=== PATIENT | male | born 1995 | race Two or more races ===

== ENCOUNTER 2016-12-14 19:57 | Emergency (ER) | payer OTHER ==
[~2016-12-14] VITALS: Ht 190.5 cm; Wt 66.5 kg
[2016-12-14 20:08] VITALS: BP 129/65
== END 2016-12-14 22:25 | disposition home or self-care (01) ==
LOC: ED 21:02
DX: S80.02XA Contusion of left knee, initial encounter (principal); V89.2XXA Person injured in unspecified motor-vehicle accident, traffic, initial encounter; Y93.89 Activity, other specified; Y92.488 Other paved roadways as the place of occurrence of the external cause; Y99.8 Other external cause status
CPT/HCPCS: 99284

== ENCOUNTER 2017-04-25 12:42 | Emergency (ER) | payer OTHER ==
[~2017-04-25] VITALS: Ht 190.5 cm; Wt 81.0 kg
[2017-04-25 12:58] VITALS: BP 100/66
== END 2017-04-25 15:06 | disposition home or self-care (01) ==
LOC: ED 15:00
DX: S83.411A Sprain of medial collateral ligament of right knee, initial encounter (principal); V89.2XXA Person injured in unspecified motor-vehicle accident, traffic, initial encounter; Y93.89 Activity, other specified; Y92.481 Parking lot as the place of occurrence of the external cause; Y99.8 Other external cause status
CPT/HCPCS: 99284

== ENCOUNTER 2018-05-29 19:50 | Emergency (ER) | payer SELFPAY ==
[~2018-05-29] VITALS: Ht 190.5 cm; Wt 68.5 kg
[2018-05-29 19:57] VITALS: BP 111/69
[2018-05-29 20:56] LABS: RAPID INFLUENZA A Negative (Negative); RAPID INFLUENZA B Negative (Negative)
[2018-05-29] MEDS ORDERED: DEXAMETHASONE 4 MG TABLET ONE (21:15)
[2018-05-29] MEDS ORDERED: DEXAMETHASONE 4 MG TABLET PO ONE (21:30)
== END 2018-05-29 21:25 | disposition home or self-care (01) ==
LOC: ED 21:00
DX: J02.8 Acute pharyngitis due to other specified organisms (principal); B97.89 Other viral agents as the cause of diseases classified elsewhere
CPT/HCPCS: 87081; 87400; 87880; 99283

== ENCOUNTER 2019-01-27 18:31 | Emergency (ER) | payer SELFPAY ==
[~2019-01-27] VITALS: Ht 190.5 cm; Wt 65.0 kg
[2019-01-27] MEDS ORDERED: KETOROLAC 30 MG/1 ML ONE (19:05)
[2019-01-27] MEDS ORDERED: KETOROLAC 30 MG/1 ML IM ONE (19:30)
[2019-01-27 19:54] VITALS: BP 131/74
== END 2019-01-27 19:56 | disposition home or self-care (01) ==
LOC: ED 19:50
DX: S33.5XXA Sprain of ligaments of lumbar spine, initial encounter (principal); G89.11 Acute pain due to trauma; F17.200 Nicotine dependence, unspecified, uncomplicated; W22.8XXA Striking against or struck by other objects, initial encounter; Y93.89 Activity, other specified; Y92.89 Other specified places as the place of occurrence of the external cause; Y99.8 Other external cause status
CPT/HCPCS: 72110; 96372; 99283; J1885

== ENCOUNTER 2019-02-05 21:01 | Emergency (ER) | payer SELFPAY ==
[~2019-02-05] VITALS: Ht 190.5 cm; Wt 63.9 kg
[2019-02-05 21:11] VITALS: BP 102/62
== END 2019-02-05 22:32 | disposition home or self-care (01) ==
LOC: ED 22:15
DX: B34.9 Viral infection, unspecified (principal); J00 Acute nasopharyngitis [common cold]
CPT/HCPCS: 71045; 87081; 87880; 99284

== ENCOUNTER 2020-09-14 23:53 | Observation (INO) | payer SELFPAY ==
[~2020-09-14] VITALS: Ht 190.5 cm; Wt 66.8 kg
[2020-09-15 00:36] LABS: ANION GAP 7 mmol/L (5-15); BASOPHILS % (AUTO) 0 % (0-1); CALCIUM 9.2 mg/dL (8.5-10.1); CHLORIDE 101 mmol/L (98-107); EOSINOPHILS % (AUTO) 0 % (1-7); LYMPHOCYTES % (AUTO) 15 % (22-44); MEAN CORPUSCULAR HEMOGLOBIN 29.8 pg (27.5-34.5); MEAN CORPUSCULAR HGB CONC 33.6 g/dL (33.2-36.2); MEAN PLATELET VOLUME 7.5 fL (7.4-10.4); MONOCYTES % (AUTO) 12 % (2-9); NEUTROPHILS % (AUTO) 72 % (42-75); PLATELET COUNT 260 x10^3/uL (130-400); RED BLOOD COUNT 5.33 x10^6/uL (4.38-5.82); RED CELL DISTRIBUTION WIDTH 13.5 % (9.4-14.8)
--- NOTE | 2020-09-15 00:43 | NUR ---
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
--- NOTE | 2020-09-15 00:52 | NUR ---
PT C/O OF LOWER ABDOMINAL PAIN SINCE MONDAY MORNING. REPORTS FEELING NAUSCIOUS AND WAS VOMITTING PARTIALLY DIGESTED FOOD AND STOMACH ACID THIS MORNING. PT AMBULATED TO ROOM WITH STEADY GAIT. CURRENTLY IN BATHROOM ATTAEMPTING TO PROVIDE A UA. SEGUN
[2020-09-15 01:12] LABS: MICROSCOPIC AUTO
--- NOTE | 2020-09-15 02:06 | NUR ---
PT OFF UNIT IN IMAGING.
[2020-09-15] MEDS ORDERED: OMNIPAQUE 350 MG/ML, 100ML BOTTLE ONE (02:19)
--- NOTE | 2020-09-15 02:37 | NUR ---
Patient is resting comfortably in bed. Bed in lowest, rails engaged, call light on lap. Vital Signs within normal limits. WCTM. nadn
--- NOTE | 2020-09-15 03:55 | NUR ---
Patient is sleeping comfortably in bed. Eyes closed. Bed in lowest, rails engaged, call light on lap. Vital Signs within normal limits. WCTM. nadn
[2020-09-15] MEDS ORDERED: SODIUM CHLORIDE 0.9% 1,000 ML IV ONE (05:00)
[2020-09-15] MEDS ORDERED: ONDANSETRON 2MG/ML, 2ML IVPush PRN ×3 (05:00→08:30)
[2020-09-15] MEDS ORDERED: MORPHINE SULFATE 4 MG/ML, 1ML IVPush PRN (05:00)
[2020-09-15] MEDS ORDERED: SODIUM CHLORIDE FLUSH 10ML SYR IVF PRN (05:00)
[2020-09-15] MEDS ORDERED: SODIUM CHLORIDE 0.9% 1,000ML IVBOLUS ONE (05:30)
--- NOTE | 2020-09-15 06:18 | NUR ---
PT READY FOR TRANSFER TO FLOOR. PT CONDITION UNCHANGED. NADN.
[2020-09-15] MEDS ORDERED: CHLORHEXIDINE 15 ML UDC ONE (06:47)
[2020-09-15] MEDS ORDERED: BUPIVACAINE/PF 0.5% ONE (07:12)
[2020-09-15] MEDS ORDERED: EPINEPHRINE 1 MG/ML, 1ML ONE (07:13)
[2020-09-15] MEDS ORDERED: FENTANYL PF 250 MCG/5ML ONE (07:15)
[2020-09-15] MEDS ORDERED: MIDAZOLAM 1 MG/ML, 2ML ONE (07:15)
[2020-09-15] MEDS ORDERED: PROPOFOL 10 MG/ML, 20ML ONE ×3 (07:16)
[2020-09-15] MEDS ORDERED: SUCCINYLCHOLINE 20 MG/ML, 10ML ONE (07:18)
[2020-09-15] MEDS ORDERED: DEXAMETHASONE 4 MG/ML, 5ML ONE (07:18)
[2020-09-15] MEDS ORDERED: ONDANSETRON 2MG/ML, 2ML ONE ×2 (07:58)
[2020-09-15] MEDS ORDERED: ROCURONIUM 10MG/ML,5ML ONE (07:58)
[2020-09-15] MEDS ORDERED: SUGAMMADEX 200 MG/2 ML IVPush ONE (07:58)
[2020-09-15] MEDS ORDERED: ACETAMINOPHEN 650 MG/20.3 ML UDC PO PRN (08:30)
[2020-09-15] MEDS ORDERED: LABETALOL 5MG/ML, 20ML IV PRN (08:30)
[2020-09-15] MEDS ORDERED: FENTANYL PF 100 MCG/2ML IV PRN (08:30)
[2020-09-15] MEDS ORDERED: PROMETHAZINE 12.5 MG SUPP PR PRN (08:30)
[2020-09-15] MEDS ORDERED: ALBUTEROL SULFATE 2.5 MG/3 ML NPPB PRN (08:30)
[2020-09-15] MEDS ORDERED: EPHEDRINE 50 MG/ML, 1ML IVPush PRN (08:30)
[2020-09-15] MEDS ORDERED: ACETAMINOPHEN 325 MG TABLET PO PRN (08:30)
[2020-09-15] MEDS ORDERED: MIDAZOLAM 1 MG/ML, 2ML IV PRN (08:30)
[2020-09-15] MEDS ORDERED: HYDROmorphone 1 MG/ML, 1ML INJ IVPush PRN ×2 (08:30→10:30)
[2020-09-15] MEDS ORDERED: PROCHLORPERAZINE 5 MG/ML, 2ML IV PRN (08:30)
[2020-09-15] MEDS ORDERED: hydrALAzine 20 MG/ML, 1ML IV PRN (08:30)
[2020-09-15] MEDS ORDERED: DIAZEPAM 5 MG/ML, 2ML IVPush PRN (08:30)
[2020-09-15] MEDS ORDERED: KETOROLAC 30 MG/1 ML IV PRN (08:30)
[2020-09-15] MEDS ORDERED: PROMETHAZINE 25 MG/ML, 1ML IVPush PRN (08:30)
[2020-09-15] MEDS ORDERED: MEPERIDINE/PF 25MG/0.5ML IVPush PRN (08:30)
[2020-09-15] MEDS ORDERED: OXYcodone 5 MG/5 ML ORAL.SOL UDC PO PRN (08:30)
[2020-09-15] MEDS ORDERED: DIPHENHYDRAMINE 50 MG/ML, 1ML IV PRN (08:30)
[2020-09-15] MEDS ORDERED: HYDROcodone/APAP 5/325 TABLET PO PRN (08:30)
[2020-09-15] MEDS ORDERED: DIPHENHYDRAMINE 50 MG/ML, 1ML IVPush PRN ×2 (08:30)
[2020-09-15 10:00] VITALS: BP 116/66
[2020-09-15] MEDS: POTASSIUM CHLORIDE 20 MEQ in D5%-0.45% NACL 1,000 ML IV SCH ×2 (11:00→18:01)
[2020-09-15 11:40] VITALS: BP 116/66
[2020-09-15 12:30] VITALS: BP 115/71
[2020-09-15] MEDS: DICYCLOMINE 10 MG CAPSULE PO SCH ×3 (14:03→20:17)
[2020-09-15 18:40] VITALS: BP 107/67
[2020-09-16] VITALS: BP 125/53
[2020-09-16] MEDS: DICYCLOMINE 10 MG CAPSULE PO SCH ×2 (02:15→08:08)
[2020-09-16 03:00] VITALS: BP 102/57
[2020-09-16] MEDS: POTASSIUM CHLORIDE 20 MEQ in D5%-0.45% NACL 1,000 ML IV SCH ×2 (03:10→12:23)
[2020-09-16 05:34] LABS: BASOPHILS % (AUTO) 0 % (0-1); EOSINOPHILS % (AUTO) 0 % (1-7); LYMPHOCYTES % (AUTO) 20 % (22-44); MEAN CORPUSCULAR HEMOGLOBIN 29.6 pg (27.5-34.5); MEAN CORPUSCULAR HGB CONC 33.3 g/dL (33.2-36.2); MEAN PLATELET VOLUME 7.4 fL (7.4-10.4); MONOCYTES % (AUTO) 10 % (2-9); NEUTROPHILS % (AUTO) 69 % (42-75); PLATELET COUNT 238 x10^3/uL (130-400); RED BLOOD COUNT 4.81 x10^6/uL (4.38-5.82); RED CELL DISTRIBUTION WIDTH 13.1 % (9.4-14.8)
[2020-09-16 05:45] LABS: ALBUMIN 3.3 g/dL (3.4-5.0); ANION GAP 7 mmol/L (5-15); CALCIUM 8.8 mg/dL (8.5-10.1); CHLORIDE 105 mmol/L (98-107); CREATININE 1.03 mg/dL (0.7-1.3)
[2020-09-16 06:30] VITALS: BP 112/70
[2020-09-16] MEDS ORDERED: ONDA4TAB7 PO (10:50)
[2020-09-16] MEDS ORDERED: IBUP-1223 PO (10:50)
[2020-09-16] MEDS ORDERED: HYDR-2214 PO (10:50)
[2020-09-16] MEDS ORDERED: ENOXAPARIN 40 MG/0.4 ML SQ SCH (11:00)
[2020-09-16 12:09] VITALS: BP 123/76
== END 2020-09-16 13:50 | disposition home or self-care (01) ==
LOC: ED 09-15 01:07 → EDIP 09-15 04:54 → INTOOBSV 09-15 04:54 → 4NE 09-15 06:30 → DCLOUNGE 09-16 13:44
PROVIDERS: ADMIT Surgery; ATTEND Surgery
DX: K52.9 Noninfective gastroenteritis and colitis, unspecified (principal); Z20.822 Contact with and (suspected) exposure to COVID-19; A08.4 Viral intestinal infection, unspecified; I88.0 Nonspecific mesenteric lymphadenitis; K56.1 Intussusception; F17.210 Nicotine dependence, cigarettes, uncomplicated; Z79.899 Other long term (current) drug therapy
CPT/HCPCS: 36415; 49000; 74177; 80048; 81001; 82040; 85025; 87635; 96372; 99285; G0378; J0171; J0330; J1100; J1650; J2250; J2405; J2704; J3010; Q9967; S0020